=== PATIENT | female | born 1945 | race Caucasian/White ===

== ENCOUNTER → 2016-08-31 | Outpatient (CLI) | payer MEDICARE, OTHER ==
[~2016-08-31] MED LIST: ASPI-611 PO; CYAN1TAB46 PO; ECHI80CA PO; FISH1CAP59 PO; LACT1CAP67 PO; MAGN250T27 PO; SIMV40TA82 PO
== END ==
LOC: IMA 10:10
PROVIDERS: ATTEND Family Medicine
DX: M81.0 Age-related osteoporosis without current pathological fracture (principal); N91.2 Amenorrhea, unspecified